=== PATIENT | female | born 1935 | race Caucasian/White ===

== ENCOUNTER → 2016-11-28 | Day surgery (SDC) | payer MEDICARE, OTHER ==
[~2016-11-28] MED LIST: ACETAMINOPHEN/HYDROcodone 325 MG/5 MG TAB ONE; BUPIVACAINE/EPINEPHRINE 0.5% PF 10 ML VIAL ONE; EPINEPHrine HCL (1:1000) 1 MG/ML VIAL OTHER ONE; LACTATED RINGER'S 1000 ML INJ 1,000 ML ONE; MIDAZOLAM HCL 2 MG/2 ML VIAL ONE; MORPHINE SULFATE 4 MG/ML INJ ONE; ONDANSETRON HCL 4 MG/2 ML VIAL IV PUSH ONE; PROPOFOL 100 MG/10 ML INJ IV ONE; TRIAMCINOLONE ACETONIDE 40 MG/ML VIAL ONE; ceFAZolin 2 GM PREMIX 50 ML ONE
--- NOTE | 2016-11-28 16:10 | MP ---
cc: MALIK OMYER M.D. DATE OF SURGERY: 11/28/2016. PREOPERATIVE DIAGNOSIS: Left knee medial meniscus tear. POSTOPERATIVE DIAGNOSIS: Left knee medial and lateral meniscus tear. OPERATIVE PROCEDURE PERFORMED: Left knee arthroscopic partial medial and lateral meniscectomy. SURGEON: Malik Moyer M.D. ANESTHETIC: General. ESTIMATED BLOOD LOSS: Minimum. COMPLICATIONS: None known. INDICATIONS FOR THE PROCEDURE: Adeline Velez is an 81-year-old female with debilitating knee pain which is resistant to conservative measures. She has abnormality on CT arthrogram. She presents now for arthroscopic surgery. Risks and benefits were thoroughly discussed in detail and informed consent was obtained. DESCRIPTION OF THE PROCEDURE IN DETAIL: The patient was brought to the operating room. She was placed under general anesthetic. The left lower extremity was prepped and draped in the usual sterile fashion. IV antibiotics were given. Time-out was completed. An inferolateral portal was made with Marcaine about the portal and a blunt trocar used in order to introduce cannula. 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 The second photograph shows the normal-appearing anterior cruciate ligament. The third photograph shows a tear involving the junction of the body and anterior horn of the lateral meniscus and the fourth photograph shows a tear involving the posterior horn of the lateral meniscus. We proceeded with making our medial-based portal and then bringing the arthroscope in to debride the tear of the midbody of the lateral meniscus and then follow-up photograph shows the result. Also noted is calcification within the meniscus on both sides. We then visualized the medial meniscus where there was an unstable tear of the midbody and posterior horn all the way into the anterior horn as well involving the medial meniscus involving the inner 75% of the meniscus. We proceeded with arthroscopic partial medial meniscectomy using a combination of basket forceps and arthroscopic shaver. 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 We switched over to a switching stick to fine-tune and address the lateral compartment and took a follow-up photograph here and then addressed the medial compartment again making a transition from the body to the posterior horn and then took our photograph from this angle checking the condyle in flexion and extension and then moving the arthroscopic equipment and coming back into the lateral portal and repeating our diagnostic arthroscopy. We identified one loose body which was removed and then we decided to inject Kenalog into the knee as the antiinflammatory as we did see the calcification. This injection was performed. The arthroscopic equipment had been removed. We closed with Steri-Strips. Sterile dressing applied. The patient was awakened and returned to the recovery room in stable condition. MD ZEINAB Sanders/OKSANA /11:44 AM /4:08 PM
== END | disposition home or self-care (01) ==
LOC: ESDC 08:21
PROVIDERS: ATTEND Orthopaedic Surgery Sports Medicine
DX: S83.242A Other tear of medial meniscus, current injury, left knee, initial encounter (principal); S83.282A Other tear of lateral meniscus, current injury, left knee, initial encounter
CPT/HCPCS: 01400; 29880; J0171; J0690; J2250; J2270; J2405; J3010; J3301; J7120